=== PATIENT | male | born 1940 | race Caucasian/White ===

== ENCOUNTER 2016-11-04 16:06 | Inpatient (IN) | payer MEDICARE, OTHER ==
--- NOTE | ~2016-11-04 | CN ---
Consultation Report [facility] [address]. [address] NAME: SAMIRA LUBIN : 38 STATUS : ADM IN [facility]#: [id number] AGE: 76 ADM/REG DATE : 11/04/16 MR#: [id number] REPORT SERV DATE: 11/05/16 DICTATED BY: SAAD MADERA DATE: 11/05/16 REPORT STATUS : Draft TRANSCRIBED BY: MODL DATE: 11/05/16 CONSULTATION DATE OF CONSULTATION: 11/04/2016 CAMERA MECHANIC: Dr. Sandoval. REASON FOR CONSULTATION: Right leg cellulitis, concern for compartment syndrome. HISTORY OF PRESENT ILLNESS: The patient is a 76-year-old white male, who is at a fdc, who has had several days of problems with his right leg. The problem started at the fdc with cough and shortness of breath. The patient possibly developed a pneumonia at that time. Within a day, he started to have some blistering of his right leg with some erythema, cellulitis was diagnosed, and he was started on broad-spectrum antibiotics with Bactrim. The patient started to have fever and worsening redness. He had blood pressure that was in the 80s and heart rate that was 140, and he was sent to the emergency room for further evaluation. In the ER, the patient got treated with resuscitation as well as medicine for his cardiac condition, and his blood pressure was in the 90s to 100s. The right leg is tender and hurts to move. The patient does have a history of DVT, but has an IVC filter in place. PAST MEDICAL HISTORY: Significant for atrial fibrillation, coronary artery disease, congestive heart failure, history of DVT and PE, spinal stenosis, rheumatoid arthritis, sleep apnea, history of esophagitis, and hiatal hernia. PAST SURGICAL HISTORY: Includes a cholecystectomy, basal cell skin removal, and lower back lumbar surgery. SOCIAL HISTORY: The patient does not currently smoke, he quit tobacco several years ago. ALLERGIES: HE IS ALLERGIC TO PENICILLIN. MEDICATIONS: Listed in the MAR. He was on chronic anticoagulation for, I presume, the atrial fibrillation or maybe even the DVT. PHYSICAL EXAMINATION: VITAL SIGNS: Blood pressure is 123/61, heart rate is 130, temperature is 99.5, oxygen saturations 97% with 18 respirations per minute. GENERAL: The patient is supine in the hospital bed, being assisted with meals by his . He is conversant and interactive and follows questions appropriately. He does complain of right leg pain, but it is improved since yesterday. HEENT: His head is normocephalic and atraumatic. His extraocular muscles are intact. NECK: Supple without JVD. CHEST: Equal expansion bilaterally. Consultation Report [facility] [address] [place] [id number] NAME: SAMIRA LUBIN : 38 STATUS : ADM IN [facility]#: [id number] AGE: 76 ADM/REG DATE : 11/04/16 MR#: [id number] REPORT SERV DATE: 11/05/16 DICTATED BY: SAAD MADERA DATE: 11/05/16 REPORT STATUS : Draft TRANSCRIBED BY: JOSEPH DATE: 11/05/16 ABDOMEN: Soft, obese, nontender, nondistended. EXTREMITIES: He has warm and dry extremities throughout. His right and left feet are pink with good capillary refill and adequate perfusion. He has a small hemorrhagic blister on his heel, approximately 2 x 2 cm, and he has extensive blistering of the anterior skin of the lott with yellow fluid under the skin surface. There is cellulitis throughout the right lower extremity. Compartments are soft, but no signs of compartment syndrome are visualized. LABORATORY DATA: White blood cell count is 8.8. He has trace leukocyte esterase in his urine. His creatinine is 1.42. His procalcitonin was 3.95. CT scan of the lower extremity has evidence of cellulitis, but no obvious fluid collections were detected. IMPRESSION AND PLAN: Mr. Lubin is 76 years old. We are consulted for a possible compartment syndrome. This is not the case on physical exam. It appears that he has severe cellulitis. He is being treated with antibiotics. General Surgery evaluation is pending for wound care issues. No gas is seen on his soft tissues to suggest a gas-forming infection on the CT scan. If he does not respond to antibiotic therapy, diagnosis of possible fasciitis should be considered. No other acute vascular conditions are identified. It does not appear that he has phlegmasia due to a DVT, he has IVC filter in place for protection. His feet appear adequately perfused. NISA/JOSEPH Saad Madera MD / [id number] CC: MD Carlos Manuel Berg M.D.
--- NOTE | ~2016-11-04 | HP ---
History And Physical [facility] [address] [place]. [address] NAME: SAMIRA LOGAN : 38 STATUS : ADM IN [facility]#: [id number] AGE: 76 ADM/REG DATE : 11/04/16 MR#: [id number] REPORT SERV DATE: 11/04/16 DICTATED BY: ANGELA OATES DATE: 11/04/16 REPORT STATUS : Draft TRANSCRIBED BY: MODGerardo DATE: 11/04/16 DATE OF ADMISSION: 11/04/2016 CHIEF COMPLAINT: Right leg pain and hypotension. 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 The patient was unable to provide a reliable H and P because he was confused, this H and P was obtained from the care provider at [facility] and at the bedside. It was noted that the patient had recurrent falls due to unsteady gait from his spinal stenosis and was admitted to [facility] back in 08/05/2015, discharged on 08/13/2015 to an acute rehab facilities. From the acute rehab facility, the patient was subsequently transferred to [facility] where the patient has been residing prior to presentation. At baseline, the patient was noted by family members to be alert, oriented, able to have many communication, but has remained predominantly bed-bound. The patient was in stable health until about four days ago when at a halfway, he was noted to be coughing, to be complaining of shortness of breath, and at that time, was diagnosed with pneumonia. At that time, he was started on Bactrim. The patient continued to take the antibiotics; however, continued to have worsening confusion, generalized fatigue as well as complaining of generalized body pain. Three days ago, it was noted that the patient had significant right leg redness, pain, and significant swelling. At the halfway, a blister was also noted at the heel of the right heel of the patient's leg. At the halfway, local wound dressing was being applied. The patient was advised to continue antibiotics with Bactrim. The patient's right lower extremity, per family member continued to get worse with increased redness. The redness continued to progress all through the mid thigh as well as the blister became darker in color and appeared black. There was associated generalized chills, but no fever. On the day of presentation, the patient was noted to have a significant worsening shortness of breath. Also noted to have blood pressure in the low 80s, heart rate increased to 140, and hence the patient was brought to the emergency room for further evaluation. REVIEW OF SYSTEMS: Unable to obtain as the patient was confused and unable to provide reliable responses. PAST MEDICAL HISTORY: 1. MALT status post chemotherapy, being followed by Dr. Samm Simon, diagnosed in 2012 without evidence of recurrence per family member. 2. Chronic atrial fibrillation. 3. Hypercoagulability with episodes of recurrent venous thromboembolism with two PEs and two DVTs. 4. Hypertension. 5. Rheumatoid arthritis. History And Physical [address] [address] NAME: SAMIRA LOGAN : 38 STATUS : ADM IN [facility]#: [id number] AGE: 76 ADM/REG DATE : 11/04/16 MR#: [id number] REPORT SERV DATE: 11/04/16 DICTATED BY: ANGELA OATES DATE: 11/04/16 REPORT STATUS : Draft TRANSCRIBED BY: JOSEPH DATE: 11/04/16 6. Coronary artery disease. 7. Hyperlipidemia. 8. History of esophagitis. 9. Obstructive sleep apnea with CPAP. 10.History of gout. 11.History of spinal stenosis. PAST SURGICAL HISTORY: 1. Cholecystectomy. 2. Basal cell skin cancer removal. 3. Lumbar back surgery for spinal stenosis. SOCIAL HISTORY: The patient quit tobacco use several years ago. Denies drinking alcohol or illicit drug use. The patient currently is a resident of [place], [place]. FAMILY HISTORY: Significant for history of coronary artery disease and congestive heart failure in the family. MEDICATIONS: 1. Calcium with vitamin D 1200 mg p.o. daily. 2. Coreg 3.125 mg p.o. b.i.d. 3. Docusate sodium 100 mg p.o. b.i.d. 4. Finasteride 5 mg p.o. daily. 5. Flonase nasal spray, one spray b.i.d. 6. Folic acid 40 mg p.o. daily. 7. Lasix 40 mg on Sunday, Sunday, and Sunday. 8. Gabapentin 400 mg at bedtime. 9. Methotrexate 10 mg p.o. q.6 hours. 10.Protonix 40 mg p.o. every breakfast. 11.Potassium chloride 20 mEq tablet p.o. daily. 12.Ropinirole 0.25 mg at bedtime. 13.Zocor 10 mg p.o. at bedtime. 14.Bactrim one tablet p.o. b.i.d. for days. 15.Flomax 0.4 mg two pills at bedtime. 16.VESIcare 5 mg p.o. daily. 17.Warfarin 6 mg p.o. daily. 18.Acetaminophen 650 mg every four hours p.r.n. 19.Dulcolax 10 mg p.o. p.r.n. 20.Loratadine 10 mg p.o. daily. 21.Fleet Enema one dose p.r.n. 22.Robitussin DM 5 mg p.o. b.i.d. 23.Milk of magnesium p.o. as needed p.r.n. 24.Oxycodone/APAP 5/325 one tablet p.o. every four hours p.r.n. 25.Senna two pills at bedtime p.r.n. 26.Zanaflex 2 mg p.o. t.i.d. ALLERGIES: ALLERGIC TO PENICILLIN. History And Physical [address] [address] NAME: SAMIRA LOGAN : 38 STATUS : ADM IN [facility]#: [id number] AGE: 76 ADM/REG DATE : 11/04/16 MR#: [id number] REPORT SERV DATE: 11/04/16 DICTATED BY: ANGELA OATES DATE: 11/04/16 REPORT STATUS : Draft TRANSCRIBED BY: JOSEPH DATE: 11/04/16 PHYSICAL EXAMINATION: VITALS SIGNS: Blood pressure was 83/47 on presentation. The patient received a bolus of IV fluids. At the time of my evaluation, the patient's blood pressure was 90/68. Heart rate was 145, saturating 94% on 2 L of oxygen, respiratory cycle 16 cycles per minute. GENERAL: In acute pain distress due to pain in the right lower extremity. HEENT: Normocephalic, atraumatic. Extraocular muscles intact. Pupils equal, round, and reactive. No pallor. No icterus. No jaundice. Oral mucosa moist. NECK: No JVD. Supple. CHEST: Nontender. Equal expansion. LUNGS: Diffuse expiratory wheezes with bibasilar crackles. No rhonchi. ABDOMEN: Obese. Bowel sounds normoactive. The patient diffuse tenderness in every quadrant of the lower . No rebound. No guarding. EXTREMITIES: Lower extremity, right lower extremity, extensive hyperemia from the tips of the toes up to the knee level. There is also warmth to this area. Blister noted on the heel of the foot. This blisters appeared hemorrhagic. There are hemorrhagic petechiae on the posterior aspect of the lower extremity. Right lower extremity, there is trace of pedal edema. DICTATION ENDS HERE IOO/MODL Angela Oates MD / [id number] CC: Gavin Brown M.D. Carlos Manuel Braga M.D.
--- NOTE | ~2016-11-04 | CN ---
Consultation Report [address] [place]. [address] NAME: FARZAD LUBIN : 38 STATUS : ADM IN [facility]#: [id number] AGE: 76 ADM/REG DATE : 11/04/16 MR#: [id number] REPORT SERV DATE: 11/05/16 DICTATED BY: SANJIV KEENE DATE: 11/05/16 REPORT STATUS : Draft TRANSCRIBED BY: MODL DATE: 11/05/16 CARDIOLOGY CONSULTATION DATE OF CONSULTATION: REQUESTING PROVIDER: Dr. Gavin Brown and Hospitalist Service. INDICATIONS: Atrial fibrillation, RVR. HISTORY OF PRESENT ILLNESS: Mr. Farzad Lubin is a 76-year-old male, who was at a nursing facility. He was brought in with swelling and blistering of his right lower leg. He was found to have severe cellulitis, has been seen by Vascular Surgery. On presentation, he had tachycardia that likely was atrial flutter with some degree of aberrant conduction, possibly atrial fibrillation. Later the patient clearly had atrial fibrillation. He is subsequently now with a more controlled rate. He had no symptoms of palpitations or racing heartbeat. No complaints of chest pain and does have some chronic shortness of breath and chronic debility. No syncope. Does have chronic lower extremity edema. PAST MEDICAL HISTORY: History of DVT and PE with an IVC filter, hypercholesterolemia, lymphoma, rheumatoid arthritis, previous history of paroxysmal atrial fibrillation. PRESENT MEDICATIONS: Caltrate, Coreg, Maxipime, Colace, Proscar, folic acid, Neurontin, Requip, Zocor, warfarin, Flomax, and thiamine. ALLERGIES: PENICILLINS. SOCIAL HISTORY: No present smoking. FAMILY HISTORY: Reviewed and noncontributory. REVIEW OF SYSTEMS: As per the HPI. Otherwise, all review of systems negative. PHYSICAL EXAMINATION: VITAL SIGNS: Blood pressure 121/61, pulse currently 84, respiratory rate is 18. GENERAL: Chronically ill-appearing elderly male. EYES: Sclerae anicteric, no arcus senilis. MOUTH: Oral mucosa moist, lips acyanotic. NECK: Jugular venous pressure normal, no carotid bruits. LUNGS: Coarse breath sounds throughout. CARDIAC: Regular rate and regular rhythm with ectopy, no murmurs, gallops or rubs. ABDOMEN: Obese, soft, nontender. Consultation Report [address] [place]. [address] NAME: FARZAD LUBIN : 38 STATUS : ADM IN PAT#: [id number] AGE: 76 ADM/REG DATE : 11/04/16 MR#: [id number] REPORT SERV DATE: 11/05/16 DICTATED BY: SANJIV KEENE DATE: 11/05/16 REPORT STATUS : Draft TRANSCRIBED BY: JOSEPH DATE: 11/05/16 EXTREMITIES: Marked bilateral lower extremity edema with blistering of the right lower leg. SKIN: Warm and dry. NEURO/PSYCH: Alert and oriented, nonfocal, mood appropriate. DATA: Potassium is 4.3, creatinine 1.4. Hemoglobin 9.6. INR 3.5. BNP 645. ECG on presentation, heart rate of 146 beats per minute, atrial fibrillation versus atrial flutter with interventricular conduction delay. IMPRESSION: 1. Right lower extremity cellulitis, which is the presenting complaint. 2. Paroxysmal atrial fibrillation with aberrancy, rate is better controlled now, and appears to be likely back in sinus rhythm. We will obtain ECG to confirm. 3. History of deep venous thrombosis, PE and IVC filter. The patient is on warfarin with INR of 3.5. 4. Rheumatoid arthritis. 5. History of lymphoma. 6. DNR status. RECOMMENDATIONS: Continue Coreg. Add as needed IV metoprolol for rate control. Obtain ECG note. Echocardiogram to be ordered. We will follow up results. GKLinda/JOSEPH Sanjiv Keene M.D. / [id number] CC: Kassi Ocasio M.D. William Warren, M.D.
--- NOTE | ~2016-11-04 | HP ---
History And Physical [facility] [address] [facility] [place]. [address] NAME: SAMIRA LOGAN : 38 STATUS : ADM IN [facility]#: [id number] AGE: 76 ADM/REG DATE : 11/04/16 MR#: [id number] REPORT SERV DATE: 11/05/16 DICTATED BY: ANGELA OATES DATE: 11/04/16 REPORT STATUS : Draft TRANSCRIBED BY: MODGerardo DATE: 11/04/16 DATE OF ADMISSION: 11/04/2016 CHIEF COMPLAINT: Right leg pain, swelling and hypotension. HISTORY OF PRESENT ILLNESS: This is a 76-year-old male with medical history significant for chronic atrial fibrillation, on chronic anticoagulation with warfarin; congestive heart failure; history of coronary artery disease; history of recurrent DVT and PE; history of hypercoagulable state; history of chronic back pain due to spinal stenosis; and unsteady gait, who presented from [place], [place] with complaints of right leg pain and swelling and hypotension. At the time of my interview, the patient was unable to provide a reliable history as he was acutely confused. The rest of the history was obtained from the caregiver at [facility], and the patient's at the bedside. It was noted that the patient had a history of recurrent falls due to unsteady gait from his spinal stenosis and was admitted to [facility] in [place] on 08/05/2015 and was subsequently discharged on 08/13/2015 to subacute rehab. From the subacute rehab, the patient was transferred to [facility]. The patient has been a resident of [facility]. The patient has been a resident of the skilled nursing on the presentation today. At the skilled nursing, it was noted that the patient was in his usual state of health, at baseline, the patient is able to have meaningful verbal conversation with family members, but has remained bed-bound. About four days ago, the patient was noted to have complained of cough and shortness of breath. Chest x-ray was done at the skilled nursing, and a diagnosis of pneumonia was made at the time. The patient was started on antibiotics. However, the patient continued to have shortness of breath and dry cough. 24-hours later, the patient was noted to have developed a right heel blister and also some evidence of redness with concern for possible cellulitis at that point. Broad-spectrum antibiotics with Bactrim was continued at the skilled nursing. It was noted by the skilled nursing that at skilled nursing, the patient's lower extremity swelling continued to progress and became red and warm, and the patient also was noted to have developed a low-grade fever. On the day of presentation, the patient was noted to develop worsening right leg pain. Blood pressure was in the 80s, heart rate increased to 140. Hence, he was transferred to the emergency room for further evaluation. On arriving at the emergency room, the patient was noted to be hypotensive in the 80s. The patient received IV normal saline bolus. Blood pressure improved transiently into the 130s. It was subsequently trended down back to the 90s. At the same time, the patient was also noted to be tachycardic. EKG shows a wide-complex tachycardia. Cardiology was also consulted for review of the abnormal EKG. It was noted that the wide complex tachycardia was due to tachycardia in a patient with AFib with aberrant conduction. A dose of IV bolus of amiodarone was given in the ED. The patient's heart rate slowed down from the 130s to 140s. The patient's blood pressure still remains persistently in the 90s. The hospitalist team was contacted to admit the patient for further evaluation. PAST MEDICAL HISTORY: 1. Chronic AFib. History And Physical [address] [address] NAME: SAMIRA LOGAN : 38 STATUS : ADM IN [facility]#: [id number] AGE: 76 ADM/REG DATE : 11/04/16 MR#: [id number] REPORT SERV DATE: 11/05/16 DICTATED BY: ANGELA OATES DATE: 11/04/16 REPORT STATUS : Draft TRANSCRIBED BY: MODL DATE: 11/04/16 2. History of coronary artery disease, history of congestive heart failure, history of recurrent DVT and PE. 3. Hypercoagulable state. 4. Spinal stenosis. 5. Rheumatoid arthritis, on methotrexate. 6. History of gout, obstructive sleep apnea on CPAP. He had also history of esophagitis. PAST SURGICAL HISTORY: 1. Cholecystectomy. 2. Basal cell skin removal. 3. History of lower lumbar back surgery. SOCIAL HISTORY: The patient quit tobacco and smoking several years ago. Denies drinking alcohol or illicit drug use. The patient currently resides at [facility]. The patient is also to his , who was at the bedside at the time of my evaluation. FAMILY HISTORY: Significant for history of coronary artery disease and hypertension as well as congestive heart failure in the family. ALLERGIES: PENICILLIN. HOME MEDICATIONS: 1. Calcium with vitamin D 1200 mg p.o. daily. 2. Coreg 3.125 p.o. b.i.d. 3. Colace 100 mg p.o. b.i.d. 4. Finasteride 5 mg p.o. daily. 5. Flonase nasal spray one spray twice a day. 6. Folic acid 400 mcg p.o. daily. 7. Lasix 40 mg p.o. Sunday and Sunday. 8. Gabapentin 400 mg p.o. at bedtime. 9. Methotrexate 10 mg p.o. q.7 days. 10.Protonix 40 mg p.o. with breakfast. 11.Potassium chloride 20 mEq Sunday, Wednesdays, and Fridays. 12.Ropinirole 0.25 mg p.o. at bedtime. 13.Zocor 10 mg p.o. at bedtime. 14.Bactrim DS tablet one p.o. b.i.d. x7 days. 15.Flomax 0.4 mg two pills at bedtime. 16.VESIcare 5 mg p.o. daily. 17.Warfarin 6 mg p.o. daily. 18.Acetaminophen 325 mg p.o. p.r.n. 19.Dulcolax 10 mg p.o. p.r.n. 20.Loratadine 10 mg p.o. daily p.r.n. 21.Fleet Enema p.r.n. 22.Robitussin DM 10 mEq oral solution 5 mL. p.o. q.4 hours p.r.n. 23.Hydrocort cream one to apply daily. 24.Potassium chloride 20 mEq p.o. as needed. 25.Milk of magnesia 30 mL p.o. daily as needed. History And Physical [address] [place] [facility] [address] NAME: SAMIRA LOGAN YESSICA : 38 STATUS : ADM IN PAT#: [id number] AGE: 76 ADM/REG DATE : 11/04/16 MR#: [id number] REPORT SERV DATE: 11/05/16 DICTATED BY: ANGELA OATES DATE: 11/04/16 REPORT STATUS : Draft TRANSCRIBED BY: JOSEPH DATE: 11/04/16 26.Oxycodone 5/325, p.o. at bedtime p.r.n. 27.Tizanidine 2 mg p.o. three times a day p.r.n. 28.Senna two tablets p.o. at bedtime p.r.n. PHYSICAL EXAMINATION: VITAL SIGNS: On presentation blood pressure 83/47 mmHg status post fluid resuscitation and blood pressure at the time of my evaluation was 96/63, heart rate was 145, temperature was 100.4, respiratory rate was 24, oxygen saturation was 94 on 2 L. GENERAL: The patient is in acute pain distress due to left severe leg pain. HEENT: Normocephalic, atraumatic. Extraocular muscles intact. Pupils equal, round, and reactive. Not pale. No jaundice. NECK: Supple. No JVD. CHEST: No area of tenderness. Bilaterally symmetrical. Equal expansion. LUNGS: Noted to have bibasilar expiratory wheezes without crepitus with some mild crackles without evidence of rhonchi. ABDOMEN: Obese. Bowel sounds normoactive. The patient was uncooperative during abdominal exam, reported tenderness in all quadrants. Lower extremity, right lower extremity has warmth and hyperemia extending from the toes all the way to the right below the knee, warm, tender, blister on the right heel appears black with possible hemorrhage. Also noted to have some ecchymosis on the posterior aspect of the lower extremities. However, left lower extremity, trace of pedal edema. NEURO: Alert oriented x1. Strength in the lower extremities, unable to assess due to pain. LABORATORY DATA: Chemistry: Sodium 139, potassium 4.7, chloride 104, bicarb 26, creatinine 1.42, BUN 38, glucose 115, calcium 8.5. Total protein 6.0, albumin 1.8. Alkaline phosphatase 99, AST 74, ALT 25, procalcitonin 3.95. Hematology: WBC 8.8, hemoglobin 10.7, hematocrit 33.6, platelet 181. Urinalysis: Trace leukocyte esterase, moderate blood. Rest, negative. Influenza screen: Influenza A and B negative. Lactate 1.9. Chest x-ray, impression: Cardiomegaly with vascular congestion. SUMMARY: This is a 76-year-old male with medical history of chronic atrial fibrillation congestive heart failure, history of recurrent venous thromboembolism, hypercoagulable state, who presented to the hospital with right leg pain, swelling, and redness concerning for right leg cellulitis. Also noted to have hypotension and significantly elevated procalcitonin of 3.95. Constellation of presentation in keeping with severe sepsis secondary to right leg cellulitis. 1. Severe sepsis secondary to right leg cellulitis. The patient has right leg pain, redness, and warm as well as a low-grade temperature of 100.4 and procalcitonin of 3.95. Although WBC is 8.8, leukocytosis response likely marred by ongoing treatment with antibiotics prior to presentation. At this time, we will discontinue Bactrim. We will continue IV vancomycin as ordered in the ED. I will add cefepime to the patient's antibiotics. I will also continue aggressive resuscitation at this time. We will History And Physical [address] [address] NAME: SAMIRA LOGAN : 38 STATUS : ADM IN [facility]#: [id number] AGE: 76 ADM/REG DATE : 11/04/16 MR#: [id number] REPORT SERV DATE: 11/05/16 DICTATED BY: ANGELA OATES DATE: 11/04/16 REPORT STATUS : Draft TRANSCRIBED BY: MODL DATE: 11/04/16 switch from IV fluid to IV albumin due to concern for significantly fluid overloaded and vascular congestion as noted on chest x-ray. I will also obtain a CPK. I have also ordered a CT scan without contrast of the lower extremity. Vascular Surgeon was also consulted. Recommend in addition to the CT of the lower extremity to also obtain a repeat venous Doppler as well as an arterial Doppler. 2. Hypotension likely related to severe sepsis. We will resuscitation as detailed above. 3. Acute decompensated heart failure with preserved EF. The patient appeared to have significant fluid overload based on vascular congestion on chest x-ray. Elevated BNP and lower extremity swelling. At this point, we will continue IV albumin for resuscitation to maintain the patient's blood pressure. We will hold off IV fluid at this time. 4. We will also obtain a repeat echo during the course of this admission. 5. Acute kidney injury on chronic kidney disease. The patient's creatinine is slightly elevated to 142, likely due to prerenal azotemia due to hypoperfusion of the kidneys from hypotension as well as acute decompensated aside from hypoperfusion of the kidneys. At this point, we will continue to monitor renal function closely and continue resuscitation as detailed above. 6. Wide-complex tachycardia noted on EKG on presentation due to sinus tachycardia with chronic atrial fibrillation with conduction aberrancy. The patient received a bolus of amiodarone in the ED. Cardiology input was significantly appreciated. The patient's heart rate trended down from 145 now into the 117 and blood pressure currently is trending upwards. We will continue to monitor. 7. Chronic atrial fibrillation. The patient is noted to take beta-blockers at home as well as receive warfarin, and we will check the patient's INR and we will continue anticoagulation as appropriate. 8. Admission disposition: Cardiac telemonitoring floor. 9. Code status: DNR/. 10.Admission status: Inpatient. 11.DVT prophylaxis contraindicated as the patient is currently anticoagulated. IOO/MODL Angela Oates MD / [id number] CC: Kassi Ocasio M.D.
--- NOTE | ~2016-11-04 | DS ---
Discharge Summary [address] [place]. [address] NAME: SAMIRA LOGAN : 38 STATUS : DIS IN PAT#: [id number] AGE: 76 ADM/REG DATE : 11/04/16 MR#: [id number] REPORT SERV DATE: 11/11/16 DICTATED BY: ALEX RANGEL DATE: 11/10/16 REPORT STATUS : Draft TRANSCRIBED BY: MODL DATE: 11/10/16 ADMISSION DATE: 11/04/2016 DISCHARGE DATE: 11/10/2016 DISPOSITION: Transfer to [facility]. DISCHARGE DIAGNOSES: 1. Severe sepsis. 2. Severe cellulitis of the right lower extremity with serous blisters. 3. Anasarca. 4. Mqvri-go-yyxdoox diastolic heart failure, volume overload, hypoalbuminemia. 5. Encephalopathy that is multifactorial, toxic and metabolic, that has resolved back to baseline. 6. Pneumonia, present on admission. 7. Paroxysmal atrial fibrillation. 8. Acute kidney injury that has resolved. DISCHARGE MEDICATIONS: Coreg 12.5 mg p.o. twice a day, vitamin D and calcium tab 1200 mg daily, Colace 100 mg twice a day, Proscar 5 mg daily, folic acid 400 mcg daily, Neurontin 40 mg at bedtime, Protonix 40 mg daily at breakfast, Requip 0.25 mg at bedtime, Senokot two tabs at bedtime p.r.n. for constipation, Zocor 10 mg at bedtime, Flomax 0.8 mg at bedtime, Florastor one capsule p.o. twice a day for four days, Seroquel 12.5 mg at bedtime, Klor-Con 20 mEq p.o. daily, DuoNeb inhaled every four hours p.r.n. for wheezing and shortness of breath, Tylenol 650 mg every four hours p.r.n. for fever greater than 101.5, Dulcolax suppositories p.r.n., milk of magnesia p.r.n., Flonase nasal spray twice a day p.r.n., guaifenesin every six hours p.r.n., Claritin 10 mg daily p.r.n. for seasonal allergies, methotrexate 10 mg every seven days, Zofran 4 mg every four hours p.r.n. for nausea, VESIcare 5 mg daily, Fleet enema p.r.n., hydrocortisone cream p.r.n., hydrocodone prescription written by Dr. Gavin Taveras, clindamycin 450 mg three times a day for four more days, and Zanaflex 2 mg three times a day p.r.n. for spasm. HISTORY OF PRESENT ILLNESS: 76-year-old male, who presented with right leg pain, swelling, and hypotension. Please see the initial H and P of Dr. Conte as the patient is admitted to Hospitalist Service for further evaluation and treatment. He was started on empiric antibiotic therapy. Lab work was ordered and followed. He was given aggressive IV fluid replacement and monitored closely. CONSULTANTS DURING THIS ADMISSION: Vascular Surgery, Dr. Babar Madera; Cardiology, Dr. Keene and Dr. Rucker; General Surgery, Wound Care, Dr. Glenn Blair. PROCEDURES AND IMAGING DURING THIS ADMISSION: Include a CT scan of the right lower extremity that is showing no significant joint effusion, infiltration of subcutaneous soft tissue planes from the mid calf to the ankle consistent with a history of cellulitis. There was no discrete abscess identified. CT of the abdomen and pelvis showing bibasilar atelectasis, small pleural effusions, large hiatal hernia, moderate-size right inguinal hernia containing non-incarcerated mesenteric fat and small bowel, prostate enlargement, questionable Discharge Summary [address] [address] NAME: SAMIRA LOGAN : 38 STATUS : DIS IN PAT#: [id number] AGE: 76 ADM/REG DATE : 11/04/16 MR#: [id number] REPORT SERV DATE: 11/11/16 DICTATED BY: ALEX RANGEL DATE: 11/10/16 REPORT STATUS : Draft TRANSCRIBED BY: MODL DATE: 11/10/16 bibasilar pneumonia. A venous Doppler of the lower extremities that was negative for DVT. An echocardiogram showing an ejection fraction of 50%, mild left atrial enlargement, mild pulmonary hypertension, but no clot. HOSPITAL COURSE: Initially, as stated, the patient was somewhat hypotensive and with a severe cellulitic right lower extremity. He was given aggressive IV hydration and started on antibiotic therapy, which continued. His fevers began to trend downward with this initial treatment. His right leg did have some rather large fluid-filled blisters, which were evaluated during this admission by Surgery, Wound Care, Dr. Glenn Blair and his staff. The patient had a waxing and waning mental status during this admission with his history of dementia and this acute infection, but he continued on IV antibiotics of Maxipime, Cleocin, and vancomycin initially. His lower extremity redness began to resolve somewhat and vancomycin was stopped. He was continued on Maxipime and Cleocin. He was floridly edematous and albumin was found to be extremely low at 1.9. He was given SPI and Bumex and continued on IV diuresis with Bumex, although this treatment of SPI and Bumex did not significantly improve his overall edema. He was severely debilitated and in discussion with the family, they stated that at the shelter, he had actually fallen there while trying to mobilize. After further discussion with the patient's family, both sons and , and also with Dr. Rucker, a decision was made to have Palliative Care evaluate the patient and have discussions with the family. Dr. Jorge Fowler, Palliative Care, saw this patient and his family on 11/09/2016, where the discussion led to hospice and family did decide that hospice was the best and most appropriate to go for him to focus on comfort care. The patient was felt safe for discharge back to his [facility] facility, and [facility] will be assuming his care at the facility. I am continuing diuresis at this time as his kidney function has been extremely stable, and he is still quite volume overloaded. Over the past 24-48 hours, I have made some improvement with regard to his fluid volume status as he has lost around 4 kg. I have updated the family at bedside extensively. They are in agreement with this plan going forward. The patient was discharged with the above medicines with [facility] to assume care. Please note greater than 30 minutes was spent on this discharge for family meeting, medication teaching, and followup planning. CSC/MODL Alex Rangel NP / [id number] CC: Kassi Foster M.D.
--- NOTE | ~2016-11-04 | CN ---
Consultation Report [facility] [address] [facility] [address] [place]. [address] NAME: SAMIRA LOGAN : 38 STATUS : ADM IN [facility]#: [id number] AGE: 76 ADM/REG DATE : 11/04/16 MR#: [id number] REPORT SERV DATE: 11/09/16 DICTATED BY: JEROD BLAIR III DATE: 11/08/16 REPORT STATUS : Draft TRANSCRIBED BY: MODL DATE: 11/08/16 CONSULTATION DATE OF CONSULTATION: 11/08/2016 REASON FOR CONSULT: 1. Severe cellulitis and infection of the right lower extremity. 2. Recommendation regarding surgical management. HISTORY OF PRESENT ILLNESS: We were asked to see this 76-year-old male hospitalized for the above reasons. The patient was admitted to the hospital on 11/04/2016 with evidence for sepsis. The patient is bedridden and lives in an extended care facility and has a history of altered mental status. He was recently noted by his family to have worsening pain in his right lower extremity. The patient presented to the emergency room after being transferred from Skilled Care Facility on the day of admission. He was noted to have erythema and blisters over his right lower extremity as well as altered mental status. The patient himself is confused and not able to provide much history. What we have available is from his family and his records. The patient denies any specific pain to his leg when he is touched he does have a moderate amount of pain. The patient's white blood cell count was 8.8 on admission. He was on Bactrim prior to this admission for presumed pneumonia as an outpatient. He is currently on Maxipime, Cleocin, and vancomycin. Vascular Surgery has seen the patient in consultation and felt that he has a cellulitis with no evidence for compartment syndrome or peripheral arterial insufficiency in need of intervention. The patient's family reports he has had cellulitis for some time. He apparently has chronic lymphedema of the lower extremities. He has been bedridden for undetermined amount of time. PAST MEDICAL HISTORY: 1. Atrial fibrillation. 2. Coronary artery disease. 3. Congestive heart failure. 4. History deep venous thrombosis and pulmonary embolus. 5. Spinal stenosis. 6. Rheumatoid arthritis. 7. Sleep apnea. 8. Recent pneumonia. MEDICATIONS: Caltrate, Coreg, Colace, Proscar, folic acid, Neurontin, Protonix, MiraLAX, Requip, Florastor, Zocor, Flomax, thiamine, Maxipime, Cleocin, and vancomycin. Consultation Report [address] [place]. [address] NAME: SAMIRA LOGAN : 38 STATUS : ADM IN PAT#: [id number] AGE: 76 ADM/REG DATE : 11/04/16 MR#: [id number] REPORT SERV DATE: 11/09/16 DICTATED BY: JEROD BLAIR III DATE: 11/08/16 REPORT STATUS : Draft TRANSCRIBED BY: JOSEPH DATE: 11/08/16 PAST SURGICAL HISTORY: Includes basal cell carcinoma, back surgery, and cholecystectomy. SOCIAL HISTORY: The patient lives in a skilled care facility in [place]. He is . He has a previous history of tobacco use in the past. No history of alcohol use. FAMILY HISTORY: Positive for cardiac disease. PHYSICAL EXAMINATION: GENERAL: This is a large male, who is somewhat confused. He is not able to really communicate. He is oriented. He screams and moans when his right leg is touched, but he is not able to communicate well. VITAL SIGNS: Blood pressure 126/70, pulse 105, and temperature 99.2. HEENT: Unremarkable. Cranial nerves 2 through 12 are normal LUNGS: Clear. EXTREMITIES: Exam of his right lower extremity reveals severe cellulitis of the right lower extremity. The entire right lower extremity is involved from the foot to the groin. There are multiple areas of erythema. There are multiple fluid-filled blisters throughout the leg. There is no necrosis noted. There are blisters over the right heel and superficial wound over the right heel and over the right anterior tibia. Some of these are draining a small amount of yellow serous material. The patient has good capillary refill in the toes bilaterally. He has normal sensation to light touch. LABORATORY DATA: Hematocrit 29 and white blood cell count 11.6. ASSESSMENT: 1. A 76-year-old male with severe cellulitis of the right lower extremity, associated with multiple blisters, with no wounds in need of surgical debridement at this time. 2. Pneumonia. 3. Altered mental status. 4. Congestive heart failure. 5. Deep venous thrombosis and pulmonary embolus. 6. History of the patient being essentially bedridden and severely weak or in severely decondition state. 7. Sleep apnea. 8. Recent pneumonia. PLAN: The patient has appropriate antibiotics. There is no indication for surgical intervention or vascular intervention at this time. I will follow the patient with you. We will recommend local wound care with SilvaSorb to the open wounds or blisters and compression with Jace wraps. We will follow the patient with you. Thank you for this consult. Consultation Report [address] [place]. [address] NAME: SAMIRA LOGAN : 38 STATUS : ADM IN [facility]#: [id number] AGE: 76 ADM/REG DATE : 11/04/16 MR#: [id number] REPORT SERV DATE: 11/09/16 DICTATED BY: JEROD BLAIR III DATE: 11/08/16 REPORT STATUS : Draft TRANSCRIBED BY: JOSEPH DATE: 11/08/16 Eriberto/JOSEPH Jerod Blair III, M.D. / [id number] CC: Kassi Ocasio M.D.
[~2016-11-04 16:06] MED LIST: C5 PO; CALTRA600D PO; CITRACAL PO; COREG12 PO; COREG25 PO; COREG6 PO; COUMADIN6 MG PO; COZ25 PO; DITRO5 PO; DITROPAN PO; DSS PO; ENULOSE PO; FERROUS SULF325 M1 PO; FESO4 PO; FISH-EPA1000 MG PO; FLEX PO; FLOMAX4 PO; FLONASE NAS; FOLIC ACID PO; FOLIC ACID400 MC1 PO; FOLIC PO; HUMIR1; HUMIRA PEN SC; JANTOVEN5 MG PO; JANTOVEN6 MG PO; LIDODERM TOP; LORTAB 5 PO; METAMUCIL CAN7 OZ PO; MIRALAXPKT PO; MOBIC15 MG PO; MTX2.5 PO; NEUR400 PO; NULLO PO; OS500+D PO; P5 PO; PCET PO; PRILO PO; PRIN10 PO; PRIN20 PO; PRIN5 PO; PROSCAR5 PO; PROTONIX PO; RESTASIS OPH; RITUXAN IV; SENTAB PO; SUCR PO; TYLENOL 8 HR650 MG PO; TYLENOL ARTH650 MG PO; VITAMIN B-121000 MC1 SL; ZANTAC150 MG PO; ZOCOR10 PO
[2016-11-04 17:06] LABS: BASOPHILS 0.2 %; BASOPHILS ABSOLUTE 0.02 10/3/uL (0.0-0.16); EOSINOPHILS 0.1 %; EOSINOPHILS ABSOLUTE 0.01 10/3/uL (0.0-0.53); ER CBC TAT 0 Hrs 13 Mins; HEMATOCRIT 33.6 % (40.0-51.0); HEMOGLOBIN 10.7 g/dL (13.6-17.8); IMMATURE GRANULOCYTES 0.5 %; IMMATURE GRANULOCYTES ABSOLUTE 0.04 10/3/uL (0.0-0.11); LYMPHOCYTES 6.9 %; LYMPHOCYTES ABSOLUTE 0.61 10/3/uL (0.67-4.30); MANUAL DIFF NO %; MEAN CORPUS HGB CONC 31.8 g/dL (32.0-36.0); MEAN CORPUSCULAR HEMOGLOB 28.2 pg (26.0-34.0); MEAN CORPUSCULAR VOLUME 88.7 fL (80-100); MEAN PLATELET VOLUME 10.9 fL (9.2-13.0); MONOCYTES 2.7 %; MONOCYTES ABSOLUTE 0.24 10/3/uL (0.21-1.20); NEUTROPHILS 89.6 %; NEUTROPHILS ABSOLUTE 7.88 10/3/uL (2.02-8.40); PLATELET COUNT 181 10/3/uL (150-400); RBC DISTRIBUTION WIDTH 17.4 % (12.0-16.0); RED CELL COUNT 3.79 10/6/uL (4.7-6.1); WHITE BLOOD CELLS 8.8 10/3/uL (4.5-10.5)
[2016-11-04 17:13] LABS: CALCIUM, SERUM 8.5 MG/DL (8.5-10.4); CHLORIDE, SERUM 104 MMOL/L (96-112); CO2 (CARBON DIOXIDE) 26 MMOL/L (24-34); CREATININE 1.42 MG/DL (0.70-1.30); GFR AFRICAN AMERICAN 55 ML/MIN (>=60); GFR NON AFRICAN AMERICAN 47 ML/MIN (>=60); SGPT(ALT) 25 U/L (5-65); SODIUM, SERUM 139 MMOL/L (135-148)
[2016-11-04 17:16] LABS: A/G RATIO 0.4 (0.7-1.9); ALBUMIN 1.8 G/DL (3.5-5.0); ALKALINE PHOSPHATASE 99 U/L (45-117); BUN (BLOOD UREA NITROGEN) 38 MG/DL (6-23); GLOBULIN 4.2 G/DL (2.5-4.1); GLUCOSE, SERUM 115 MG/DL (60-99); LACTATE 1.9 MMOL/L (0.3-2.4); POTASSIUM, SERUM 4.7 MMOL/L (3.5-5.3); SGOT(AST) 74 U/L (5-40); TOTAL BILIRUBIN 0.5 MG/DL (0-1.2)
[2016-11-04 17:29] LABS: PLATELET ESTIMATE ADQ (ADEQUATE); RBC MORPHOLOGY NORM (NORMAL)
[2016-11-04] MEDS ORDERED: PROSCAR5 PO (17:43)
[2016-11-04] MEDS ORDERED: COREG3 PO (17:43)
[2016-11-04] MEDS ORDERED: DSS PO (17:43)
[2016-11-04] MEDS ORDERED: CALTRA600D PO (17:43)
[2016-11-04] MEDS ORDERED: FLONASE NAS (17:44)
[2016-11-04] MEDS ORDERED: FOLIC ACID400 MC1 PO (17:44)
[2016-11-04] MEDS ORDERED: NEUR400 PO (17:45)
[2016-11-04] MEDS ORDERED: TREXALL10 MG PO (17:45)
[2016-11-04] MEDS ORDERED: KLOR-CON M2020 MEQ PO ×2 (17:45→17:58)
[2016-11-04] MEDS ORDERED: L40 PO (17:45)
[2016-11-04] MEDS ORDERED: PROTONIX PO (17:45)
[2016-11-04] MEDS ORDERED: ZOCOR10 PO (17:47)
[2016-11-04] MEDS ORDERED: REQUIP25 PO (17:47)
[2016-11-04] MEDS ORDERED: BACDS PO (17:48)
[2016-11-04] MEDS ORDERED: VESICARE5 PO (17:51)
[2016-11-04] MEDS ORDERED: FLOMAX4 PO (17:51)
[2016-11-04] MEDS ORDERED: COUMADIN6 MG PO (17:51)
[2016-11-04] MEDS ORDERED: ZEASORB AF 2% TOP (17:52)
[2016-11-04] MEDS ORDERED: T PO (17:52)
[2016-11-04] MEDS ORDERED: CLARIT10 PO (17:53)
[2016-11-04] MEDS ORDERED: BISR PR (17:53)
[2016-11-04] MEDS ORDERED: FLEETS ENEMA PR (17:54)
[2016-11-04] MEDS ORDERED: GGDM5ML PO (17:55)
[2016-11-04 17:56] LABS: INFLUENZA A SCREEN NEGATIVE (NEGATIVE); INFLUENZA B SCREEN NEGATIVE (NEGATIVE)
[2016-11-04] MEDS ORDERED: HYDROCORTISONE30 G1 PR (17:57)
[2016-11-04] MEDS ORDERED: ENDOCET1 TAB PO (17:58)
[2016-11-04] MEDS ORDERED: MOMUD PO (17:58)
[2016-11-04] MEDS ORDERED: SENTAB PO (17:59)
[2016-11-04] MEDS ORDERED: ZANAFLEX2 MG PO (17:59)
[2016-11-04 18:01] LABS: ASCORBIC ACID (UR NOT ORDER) NEG (NEG); BILIRUBIN, URINE NEGATIVE (NEG); ER URINALYSIS TAT 0 Hrs 11 Mins; KETONE, URINE NEGATIVE (NEG); LEUKOCYTE ESTERASE(NOT OR TRACE (NEG); NITRITE (URINE) NEG (NEG); WBC (NOT ORDERED) (RFLEX) 2 (0-5)
[2016-11-04 19:17] LABS: PROCALCITONIN 3.95 ng/mL (<0.5)
[2016-11-05 03:32] LABS: HEMOGLOBIN 9.6 g/dL (13.6-17.8); MEAN CORPUS HGB CONC 32.2 g/dL (32.0-36.0); MEAN CORPUSCULAR HEMOGLOB 28.4 pg (26.0-34.0); MEAN CORPUSCULAR VOLUME 88.2 fL (80-100); MEAN PLATELET VOLUME 10.1 fL (9.2-13.0); PLATELET COUNT 175 10/3/uL (150-400); RBC DISTRIBUTION WIDTH 17.1 % (12.0-16.0); RED CELL COUNT 3.38 10/6/uL (4.7-6.1); WHITE BLOOD CELLS 9.8 10/3/uL (4.5-10.5)
[2016-11-05 03:39] LABS: HEMATOCRIT 29.8 % (40.0-51.0)
[2016-11-05 03:40] LABS: MANUAL DIFF YES %
[2016-11-05 03:40] LABS: INTERNATIONAL NORMAL RATI 3.5 UNITS (-); PARTIAL THROMBO TIME 60.1 SEC (22.5-37.2)
[2016-11-05 03:45] LABS: PROTIME (NOT ORD) 34.9 SEC (12.0-14.5)
[2016-11-05 03:47] LABS: ALBUMIN 1.9 G/DL (3.5-5.0); BUN (BLOOD UREA NITROGEN) 39 MG/DL (6-23); CALCIUM, SERUM 8.2 MG/DL (8.5-10.4); CHLORIDE, SERUM 105 MMOL/L (96-112); CO2 (CARBON DIOXIDE) 26 MMOL/L (24-34); GFR AFRICAN AMERICAN 56 ML/MIN (>=60); GFR NON AFRICAN AMERICAN 48 ML/MIN (>=60); GLUCOSE, SERUM 101 MG/DL (60-99); PHOSPHORUS, SERUM 3.3 MG/DL (2.5-4.5); POTASSIUM, SERUM 4.3 MMOL/L (3.5-5.3); SODIUM, SERUM 142 MMOL/L (135-148)
[2016-11-05 04:13] LABS: BAND NEUTROPHILS 5 %; LYMPHOCYTES 7 %; LYMPHOCYTES ABSOLUTE (CALC) 0.69 10/3/uL (0.67-4.30); MONOCYTES 1 %; NEUTROPHILS ABSOLUTE (CALC) 9.02 10/3/uL (2.02-8.40); SEGMENTED NEUTROPHIL (0) 87 %; TOTAL NUCLEATED CELLS 100
[2016-11-05 04:18] LABS: PLATELET ESTIMATE ADQ (ADEQUATE)
[2016-11-05 12:54] LABS: FERRITIN 263 NG/ML (26-388)
[2016-11-06 05:34] LABS: HEMATOCRIT 28.9 % (40.0-51.0); HEMOGLOBIN 9.1 g/dL (13.6-17.8); MEAN CORPUS HGB CONC 31.5 g/dL (32.0-36.0); MEAN CORPUSCULAR HEMOGLOB 28.4 pg (26.0-34.0); MEAN CORPUSCULAR VOLUME 90.3 fL (80-100); MEAN PLATELET VOLUME 10.4 fL (9.2-13.0); PLATELET COUNT 161 10/3/uL (150-400); RBC DISTRIBUTION WIDTH 17.4 % (12.0-16.0); WHITE BLOOD CELLS 11.5 10/3/uL (4.5-10.5)
[2016-11-06 05:35] LABS: MANUAL DIFF YES %
[2016-11-06 05:45] LABS: BUN (BLOOD UREA NITROGEN) 37 MG/DL (6-23); CALCIUM, SERUM 8.3 MG/DL (8.5-10.4); CHLORIDE, SERUM 107 MMOL/L (96-112); CO2 (CARBON DIOXIDE) 25 MMOL/L (24-34); CREATININE 1.07 MG/DL (0.70-1.30); GFR AFRICAN AMERICAN 77 ML/MIN (>=60); GFR NON AFRICAN AMERICAN 67 ML/MIN (>=60); GLUCOSE, SERUM 113 MG/DL (60-99); POTASSIUM, SERUM 4.4 MMOL/L (3.5-5.3); SODIUM, SERUM 143 MMOL/L (135-148)
[2016-11-06 06:05] LABS: ANISOCYTOSIS 1+ (5-10/OIF) (0-5/OIF); LYMPHOCYTES 4 %; LYMPHOCYTES ABSOLUTE (CALC) 0.46 10/3/uL (0.67-4.30); MONOCYTES 6 %; MONOCYTES ABSOLUTE (CALC) 0.69 10/3/uL (0.21-1.20); NEUTROPHILS ABSOLUTE (CALC) 10.35 10/3/uL (2.02-8.40); SEGMENTED NEUTROPHIL (0) 90 %; TOTAL NUCLEATED CELLS 100
[2016-11-06 06:06] LABS: PLATELET ESTIMATE ADQ (ADEQUATE)
[2016-11-06 06:20] LABS: T PROTEIN (ELECT)(NOT OR 4.5 G/DL (6.0-8.5)
[2016-11-06 06:50] LABS: INTERNATIONAL NORMAL RATI 7.4 UNITS (-); PROTIME (NOT ORD) 62.4 SEC (12.0-14.5)
[2016-11-06 07:17] LABS: PROCALCITONIN 2.94 ng/mL (<0.5)
[2016-11-06 11:32] LABS: A/G 0.76 RATIO (0.9-2.10); ALB RELATIVE % 43.1 % (60.0-89.0); ALBUMIN (ELECTRO) 1.94 GM/DL (3.2-5.5); ALPHA 1 (ELECTRO) 0.46 GM/DL (0.1-0.4); ALPHA 1 RELAT % (NOT ORD) 10.3 % (1.0-4.0); ALPHA 2 (ELECTRO) 1.01 GM/DL (0.5-1.10); ALPHA 2 RELAT % 22.5 % (4.5-26.0); BETA GLOBULIN (SPE) 0.66 GM/DL (0.60-1.30); BETA RELATIVE % 14.7 % (9.0-22.0); GAMMA GLOBULIN (SPE) 0.42 G/DL (0.70-1.60); GAMMA RELAT % 9.4 % (6.0-22.0)
[2016-11-07 06:43] LABS: PROTIME (NOT ORD) 48.5 SEC (12.0-14.5)
[2016-11-07 06:44] LABS: INTERNATIONAL NORMAL RATI 5.3 UNITS (-)
[2016-11-07 06:45] LABS: MANUAL DIFF YES %; MEAN CORPUSCULAR HEMOGLOB 27.9 pg (26.0-34.0); MEAN CORPUSCULAR VOLUME 89.8 fL (80-100); MEAN PLATELET VOLUME 10.5 fL (9.2-13.0); NUCLEATED RED BLOOD CELLS 0.3 /100WBC (0-0); PLATELET COUNT 176 10/3/uL (150-400); RBC DISTRIBUTION WIDTH 17.4 % (12.0-16.0); RED CELL COUNT 3.23 10/6/uL (4.7-6.1); WHITE BLOOD CELLS 11.6 10/3/uL (4.5-10.5)
[2016-11-07 06:50] LABS: BUN (BLOOD UREA NITROGEN) 34 MG/DL (6-23); CHLORIDE, SERUM 108 MMOL/L (96-112); CO2 (CARBON DIOXIDE) 25 MMOL/L (24-34); CREATININE 0.97 MG/DL (0.70-1.30); GFR AFRICAN AMERICAN 87 ML/MIN (>=60); GFR NON AFRICAN AMERICAN 75 ML/MIN (>=60); GLUCOSE, SERUM 95 MG/DL (60-99); POTASSIUM, SERUM 4.6 MMOL/L (3.5-5.3); SODIUM, SERUM 141 MMOL/L (135-148)
[2016-11-07 06:56] LABS: ANISOCYTOSIS 1+ (5-10/OIF) (0-5/OIF); BAND NEUTROPHILS 6 %; BASOPHILS 1 %; BASOPHILS ABSOLUTE (CALC) 0.12 10/3/uL (0.0-0.16); LYMPHOCYTES 12 %; LYMPHOCYTES ABSOLUTE (CALC) 1.39 10/3/uL (0.67-4.30); MONOCYTES 2 %; MONOCYTES ABSOLUTE (CALC) 0.23 10/3/uL (0.21-1.20); NEUTROPHILS ABSOLUTE (CALC) 9.86 10/3/uL (2.02-8.40); PLATELET ESTIMATE ADQ (ADEQUATE); SEGMENTED NEUTROPHIL (0) 79 %; TOTAL NUCLEATED CELLS 100
[2016-11-07 06:57] LABS: TOXIC GRANULATION 1+
[2016-11-08 09:23] LABS: BUN (BLOOD UREA NITROGEN) 28 MG/DL (6-23); CALCIUM, SERUM 7.8 MG/DL (8.5-10.4); CHLORIDE, SERUM 104 MMOL/L (96-112); CO2 (CARBON DIOXIDE) 26 MMOL/L (24-34); CREATININE 0.95 MG/DL (0.70-1.30); GFR AFRICAN AMERICAN 89 ML/MIN (>=60); GFR NON AFRICAN AMERICAN 77 ML/MIN (>=60); GLUCOSE, SERUM 88 MG/DL (60-99); POTASSIUM, SERUM 4.5 MMOL/L (3.5-5.3); SODIUM, SERUM 138 MMOL/L (135-148)
[2016-11-08 18:09] LABS: BASOPHILS 0.1 %; BASOPHILS ABSOLUTE 0.01 10/3/uL (0.0-0.16); EOSINOPHILS 0.3 %; EOSINOPHILS ABSOLUTE 0.03 10/3/uL (0.0-0.53); HEMATOCRIT 27.4 % (40.0-51.0); HEMOGLOBIN 8.7 g/dL (13.6-17.8); IMMATURE GRANULOCYTES 0.8 %; IMMATURE GRANULOCYTES ABSOLUTE 0.08 10/3/uL (0.0-0.11); LYMPHOCYTES 6.6 %; LYMPHOCYTES ABSOLUTE 0.65 10/3/uL (0.67-4.30); MEAN CORPUS HGB CONC 31.8 g/dL (32.0-36.0); MEAN CORPUSCULAR HEMOGLOB 28.3 pg (26.0-34.0); MEAN CORPUSCULAR VOLUME 89.3 fL (80-100); MEAN PLATELET VOLUME 9.8 fL (9.2-13.0); MONOCYTES ABSOLUTE 1.38 10/3/uL (0.21-1.20); NEUTROPHILS 78.2 %; NEUTROPHILS ABSOLUTE 7.73 10/3/uL (2.02-8.40); RBC DISTRIBUTION WIDTH 17.7 % (12.0-16.0); RED CELL COUNT 3.07 10/6/uL (4.7-6.1); WHITE BLOOD CELLS 9.9 10/3/uL (4.5-10.5)
[2016-11-08 18:14] LABS: MANUAL DIFF NO %; PLATELET COUNT 246 10/3/uL (150-400)
[2016-11-08 18:24] LABS: PROTIME (NOT ORD) 45.8 SEC (12.0-14.5)
[2016-11-08 18:29] LABS: ANISOCYTOSIS 1+ (5-10/OIF) (0-5/OIF); BAND NEUTROPHILS 13 %; EOSINOPHILS 1 %; LYMPHOCYTES 6 %; LYMPHOCYTES ABSOLUTE (CALC) 0.59 10/3/uL (0.67-4.30); MONOCYTES 15 %; MONOCYTES ABSOLUTE (CALC) 1.49 10/3/uL (0.21-1.20); NEUTROPHILS ABSOLUTE (CALC) 7.72 10/3/uL (2.02-8.40); SEGMENTED NEUTROPHIL (0) 65 %; TOTAL NUCLEATED CELLS 100; TOXIC GRANULATION 1+
[2016-11-08 18:30] LABS: HYPOCHROMIA 1+ (3-10/OIF) (0-2/OIF)
[2016-11-09 05:05] LABS: HEMATOCRIT 29.2 % (40.0-51.0); HEMOGLOBIN 9.3 g/dL (13.6-17.8); MEAN CORPUS HGB CONC 31.8 g/dL (32.0-36.0); MEAN CORPUSCULAR HEMOGLOB 28.5 pg (26.0-34.0); MEAN CORPUSCULAR VOLUME 89.6 fL (80-100); PLATELET COUNT 299 10/3/uL (150-400); RBC DISTRIBUTION WIDTH 17.6 % (12.0-16.0); RED CELL COUNT 3.26 10/6/uL (4.7-6.1); WHITE BLOOD CELLS 10.1 10/3/uL (4.5-10.5)
[2016-11-09 05:06] LABS: MANUAL DIFF YES %
[2016-11-09 05:09] LABS: INTERNATIONAL NORMAL RATI 3.6 UNITS (-)
[2016-11-09 05:12] LABS: PROTIME (NOT ORD) 35.5 SEC (12.0-14.5)
[2016-11-09 05:34] LABS: BUN (BLOOD UREA NITROGEN) 27 MG/DL (6-23); CALCIUM, SERUM 8.1 MG/DL (8.5-10.4); CHLORIDE, SERUM 101 MMOL/L (96-112); CO2 (CARBON DIOXIDE) 27 MMOL/L (24-34); CREATININE 0.95 MG/DL (0.70-1.30); GFR AFRICAN AMERICAN 89 ML/MIN (>=60); GFR NON AFRICAN AMERICAN 77 ML/MIN (>=60); GLUCOSE, SERUM 100 MG/DL (60-99); POTASSIUM, SERUM 3.9 MMOL/L (3.5-5.3); SODIUM, SERUM 136 MMOL/L (135-148)
[2016-11-09 07:14] LABS: ANISOCYTOSIS 1+ (5-10/OIF) (0-5/OIF); BAND NEUTROPHILS 2 %; LYMPHOCYTES 7 %; LYMPHOCYTES ABSOLUTE (CALC) 0.71 10/3/uL (0.67-4.30); MONOCYTES 9 %; MONOCYTES ABSOLUTE (CALC) 0.91 10/3/uL (0.21-1.20); NEUTROPHILS ABSOLUTE (CALC) 8.48 10/3/uL (2.02-8.40); PLATELET ESTIMATE ADQ (ADEQUATE); SEGMENTED NEUTROPHIL (0) 82 %; TOTAL NUCLEATED CELLS 100
[2016-11-09 18:23] LABS: ASCORBIC ACID (UR NOT ORDER) NEG (NEG); BILIRUBIN, URINE NEGATIVE (NEG); KETONE, URINE NEGATIVE (NEG); LEUKOCYTE ESTERASE(NOT OR TRACE (NEG); WBC (NOT ORDERED) (RFLEX) 2 (0-5)
[2016-11-10 07:18] LABS: BUN (BLOOD UREA NITROGEN) 26 MG/DL (6-23); CALCIUM, SERUM 7.8 MG/DL (8.5-10.4); CHLORIDE, SERUM 99 MMOL/L (96-112); CO2 (CARBON DIOXIDE) 31 MMOL/L (24-34); CREATININE 0.94 MG/DL (0.70-1.30); GFR AFRICAN AMERICAN 90 ML/MIN (>=60); GFR NON AFRICAN AMERICAN 78 ML/MIN (>=60); GLUCOSE, SERUM 93 MG/DL (60-99); POTASSIUM, SERUM 3.6 MMOL/L (3.5-5.3); SODIUM, SERUM 141 MMOL/L (135-148)
[2016-11-10 13:13] LABS: PROCALCITONIN 0.48 ng/mL (<0.5)
== END 2016-11-10 20:57 | disposition hospice, inpatient (51) | DRG 871 ==
LOC: ER 16:06 → 6NO 21:20
PROVIDERS: Emergency Medicine; Hospitalist; Internal Medicine; Nurse Practitioner Family
PROC: 02HV33Z Insertion of Infusion Device into Superior Vena Cava, Percutaneous Approach (ICD-10-PCS; principal; 2016-11-05)
PROC: 4A02X4A Measurement of Cardiac Electrical Activity, Guidance, External Approach (ICD-10-PCS; 2016-11-05)
DX: A41.9 Sepsis, unspecified organism (principal); J18.9 Pneumonia, unspecified organism; E43 Unspecified severe protein-calorie malnutrition; N17.9 Acute kidney failure, unspecified; I50.33 Acute on chronic diastolic (congestive) heart failure; G92 Toxic encephalopathy; D68.59 Other primary thrombophilia; F03.90 Unspecified dementia, unspecified severity, without behavioral disturbance, psychotic disturbance, mood disturbance, and anxiety; I48.92 Unspecified atrial flutter; Z68.41 Body mass index [BMI] 40.0-44.9, adult; L03.115 Cellulitis of right lower limb; R65.20 Severe sepsis without septic shock; Z51.5 Encounter for palliative care; Z66 Do not resuscitate; K59.00 Constipation, unspecified; I48.0 Paroxysmal atrial fibrillation; K44.9 Diaphragmatic hernia without obstruction or gangrene; K40.90 Unilateral inguinal hernia, without obstruction or gangrene, not specified as recurrent; E66.01 Morbid (severe) obesity due to excess calories; R23.8 Other skin changes; F01.50 Vascular dementia, unspecified severity, without behavioral disturbance, psychotic disturbance, mood disturbance, and anxiety; M06.9 Rheumatoid arthritis, unspecified; D50.9 Iron deficiency anemia, unspecified; Z86.718 Personal history of other venous thrombosis and embolism; Z87.891 Personal history of nicotine dependence; Z88.0 Allergy status to penicillin; Z74.01 Bed confinement status; Z86.711 Personal history of pulmonary embolism; Z87.01 Personal history of pneumonia (recurrent); Z85.828 Personal history of other malignant neoplasm of skin; Z90.49 Acquired absence of other specified parts of digestive tract; Z85.72 Personal history of non-Hodgkin lymphomas
CPT/HCPCS: 36569; 71010; 73700-RT; 74176; 80048; 80053; 80069; 81001; 82550; 82607; 82728; 82962; 83605; 83735; 83880; 84100; 84145; 84155; 84165; 84439; 84443; 85025; 85610; 85730; 87040; 87804; 92610-GN; 93005; 93970; 94640; 96374; 96375; 99285; A9270-GY; C1751; C8929; G8996-CI-GN; G8997-CI-GN; G8998-CI-GN; J0282; J0692; J1170; J3370; P9047; Q9957